=== PATIENT | male | born 1955 | race Caucasian/White ===

== ENCOUNTER 2020-11-13 05:36 | Day surgery (SDC) | payer BC ==
[2020-11-06 11:35] LABS: BASOPHILS # (AUTO) 0.1 X10'3 (0-0.2); BASOPHILS % (AUTO) 1.4 % (0-1); EOSINOPHILS # (AUTO) 0.2 X10'3 (0-0.9); EOSINOPHILS % (AUTO) 2.7 % (0-6); LYMPHOCYTES # (AUTO) 1.9 X10'3 (1.1-4.8); LYMPHOCYTES % (AUTO) 24.9 % (21-51); MEAN CORPUSCULAR HEMOGLOBIN 29.4 PG (27.0-31.0); MEAN CORPUSCULAR HGB CONC 33.2 g/dL (33.0-36.5); MEAN CORPUSCULAR VOLUME 88.5 FL (78-98); MEAN PLATELET VOLUME 7.2 FL (7.4-10.4); MONOCYTES # (AUTO) 0.5 X10'3 (0-0.9); MONOCYTES % (AUTO) 6.6 % (2-12); NEUTROPHILS # (AUTO) 4.9 X10'3 (1.8-7.7); NEUTROPHILS % (AUTO) 64.4 % (42-75); PRE OP HEMATOCRIT 48.3 % (42.0-52.0); PRE OP PLATELET COUNT 355 X10'3 (140-440); RED BLOOD COUNT 5.46 X10'6 (4.70-6.10); RED CELL DISTRIBUTION WIDTH 13.2 % (11.5-14.5)
[2020-11-06 11:46] LABS: CLARITY,URINE CLEAR (Clear); COLOR,URINE YELLOW (Yellow); GLUCOSE, URINE NEGATIVE (Neg); KETONES,URINE NEGATIVE (Neg); LEUKOCYTE ESTERASE ,URINE NEGATIVE (Neg); NITRITES, URINE NEGATIVE (Neg); OCCULT BLOOD,URINE NEGATIVE (Neg); PROTEIN,URINE NEGATIVE (Neg); UROBILINOGEN,URINE 0.2 E.U/dL (0.2-1.0)
[2020-11-06 11:53] LABS: ALBUMIN 4.2 G/DL (3.4-5.0); ALBUMIN/GLOBULIN RATIO 1.2 (1.1-1.5); ALKALINE PHOSPHATASE 84 IU/L (46-116); BLOOD UREA NITROGEN 17 MG/DL (7-18); BUN/CREATININE RATIO 14.3 (5.4-32.0); CHLORIDE 106 MMOL/L (99-107); CREATININE 1.19 MG/DL (0.60-1.10); PRE OP ALT 23 U/L (30-65); PRE OP ANION GAP 8 (8-16); PRE OP AST 14 U/L (10-37); PRE OP BILIRUB, TOTAL 0.5 MG/DL (0.0-1.0); PRE OP GLUCOSE 98 MG/DL (70-104); PRE OP POTASSIUM 4.5 MMOL/L (3.4-5.1); PRE OP SODIUM 142 MMOL/L (135-145); TOTAL CARBON DIOXIDE 27.9 MMOL/L (24-32); TOTAL PROTEIN 7.7 G/DL (6.4-8.2); eGFR 61 ML/MIN
[2020-11-06 11:56] LABS: UA COLLECTION TYPE CLN CATCH MIDSTREAM
[2020-11-13] VITALS (11 sets, daily range): BP systolic 122–145; BP diastolic 70–92
[~2020-11-13] VITALS: Ht 182.9 cm; Wt 96.2 kg
[~2020-11-13 05:36] MED LIST: LEVO137T24 PO; ceFAZolin 2gm in dextrose, iso 50 ML IV ONE; famotidine 20mg tablet PO ONE; ringers solution, lacted 1,000 ML IV SCH
[2020-11-13] MEDS ORDERED: LIDOcaine 1% (10mg/ml) 2ml vial ONE (06:03)
[2020-11-13] MEDS ORDERED: BUPIVAcaine/PF 2.5 mg/ml (0.25%) 30ml vial ONE (06:43)
[2020-11-13] MEDS ORDERED: sevoflurane 250ml liquid IH ONE (07:16)
[2020-11-13] MEDS ORDERED: fentaNYL/PF 50MCG/1 ML 2ML syringe ONE (07:18)
[2020-11-13] MEDS ORDERED: midazolam 2 mg/2 ml injection ONE (07:19)
[2020-11-13] MEDS ORDERED: propofol inj 20 ML IV ONE (07:19)
[2020-11-13] MEDS ORDERED: rocuronium 10mg/ml inj IV ONE (07:19)
[2020-11-13] MEDS ORDERED: dexamethasone sod phosphate 4mg/ml inj. ONE ×2 (07:30→08:29)
[2020-11-13] MEDS ORDERED: morphine 4 MG/ML inj SYRINge IV PRN (08:00)
[2020-11-13] MEDS ORDERED: ondansetron/PF 4mg/2ml inj IV PRN (08:00)
[2020-11-13] MEDS ORDERED: ringers solution, lacted 1,000 ML IV SCH (08:00)
[2020-11-13] MEDS ORDERED: meperidine/PF 25mg/ml syringe IV PRN ×3 (08:00)
[2020-11-13] MEDS ORDERED: morphine 2 MG/ML inj. syringe IV PRN (08:00)
[2020-11-13] MEDS ORDERED: proCHLORperazine 10 MG/2 ml inj IV PRN (08:00)
[2020-11-13] MEDS ORDERED: glycopyrrolate 0.2mg/ml inj ONE (08:29)
[2020-11-13] MEDS ORDERED: ondansetron/PF 4mg/2ml inj ONE (08:30)
[2020-11-13] MEDS ORDERED: neostigmine methylsulfate 1 MG/ML 10ml vial ONE (08:31)
--- NOTE | 2020-11-13 08:50 | NUR ---
Received from OR via BED , accompanied by Anesthesiologist DR NAVARRO and report given by Anesthesiolgist. PATIENT WAKING UP, DENIES PAIN, V/S WNL, NEUROVASCULAR CHECKS INTACT, 20G PIV RUE, SCD ON, BANDAIDS TO LAP SIGHTS OF ABDOMEN CDI.
[2020-11-13] MEDS ORDERED: HYDROcodone/acetaminophen 10/325mg tab PO ONE (09:20)
--- NOTE | 2020-11-13 10:20 | NUR ---
PATIENT A&OX4, DENIES PAIN, V/S WNL, NEUROVASCULAR CHECKS INTACT, 20G PIV RUE D/C, SCD OFF, BANDAIDS TO LAP SIGHTS OF ABDOMEN CDI.. I HAVE REVIEWED D/C INSTRUCTIONS WITH PATIENT AND FAMILY HAVE VERBALIZED UNDERSTANDING.PATIENT HAS VOIDED 200CC WITH 25CC RISEDUAL BLADDER SCAN, WAS D/C HOME WITH ALL BELONGINGS AND FAMILY GAVE TRANSPORT HOME.
== END 2020-11-13 10:20 | disposition home or self-care (01) ==
LOC: PAS 05:36
PROVIDERS: ATTEND Surgery
DX: K40.90 Unilateral inguinal hernia, without obstruction or gangrene, not specified as recurrent (principal); Z20.822 Contact with and (suspected) exposure to COVID-19; D17.6 Benign lipomatous neoplasm of spermatic cord; K21.9 Gastro-esophageal reflux disease without esophagitis; G47.00 Insomnia, unspecified; I10 Essential (primary) hypertension; E03.9 Hypothyroidism, unspecified; F41.9 Anxiety disorder, unspecified; E88.9 Metabolic disorder, unspecified; E66.9 Obesity, unspecified; Z68.28 Body mass index [BMI] 28.0-28.9, adult; Z98.52 Vasectomy status; Z98.890 Other specified postprocedural states; Z79.899 Other long term (current) drug therapy; Z80.0 Family history of malignant neoplasm of digestive organs
CPT/HCPCS: 36415; 49650; 80053; 81003; 82948; 85025; 87635; 93005; C1758; C1781; J1100; J2001; J2250; J2405; J2704; J2710; J3010; J3490; J7120; A4215; A4338; A4618